=== PATIENT | female | born 1975 | race Caucasian/White ===

== ENCOUNTER → 2018-03-05 | Outpatient (CLI) | payer BC, OTHER ==
[~2018-03-05] MED LIST: AMOX-358 PO; BACL10TA; FLUC150T PO; FLUO40CA; FLUT9.9S NS; PHEN37.582; PROP1TAB77; SULF1TAB38 PO; ZOVIA
--- NOTE | 2018-03-05 17:54 | Diagnostic Imaging Report ---
INDICATION: Digital mammogram bilateral screening with 3-D tomosynthesis. This study was compared to the prior exams of 08/12/16 and 03/04/15. At this time, there are no current complaints. The current study was also evaluated with a Computer Aided Detection (CAD) system. FINDINGS: The fibroglandular tissue in both breasts is heterogeneously dense. This does limit the sensitivity of this exam. When compared to the prior study, there does not appear to have been any significant change. There is no primary or secondary sign of malignancy noted. The 3D tomographic views also fail to show any sign of malignancy. IMPRESSION: There is no evidence of malignancy. ACR BI-RADS Category 1: Negative. Result letter will be mailed to the patient. Note: At least 10% of breast cancer is not imaged by mammography. Dictated by: Dictated on workstation # [id number]
== END ==
LOC: RAD 07:24
PROVIDERS: ATTEND Obstetrics & Gynecology
DX: Z12.31 Encounter for screening mammogram for malignant neoplasm of breast (principal)
CPT/HCPCS: 77067

== ENCOUNTER → 2019-06-14 | Outpatient (CLI) | payer BC, OTHER ==
--- NOTE | 2019-06-14 18:59 | Diagnostic Imaging Report ---
INDICATION: Routine screening. COMPARISON: Comparison is made with prior mammograms of 03/05/2018 and 08/12/2016. 2-D and 3-D bilateral screening mammography was performed. The current study was also evaluated with a Computer Aided Detection (CAD) system. 3-D tomosynthesis was also performed and reviewed. FINDINGS: Both breasts are heterogeneously dense, limiting the sensitivity of mammography. There are benign calcifications bilaterally. No mass or malignant-appearing microcalcifications are seen. The axillae are unremarkable. IMPRESSION: No mammographic features suspicious for malignancy are identified. ACR BI-RADS Category 2: Benign findings. Result letter will be mailed to the patient. Note: At least 10% of breast cancer is not imaged by mammography. Dictated by: Dictated on workstation # [id number]
== END ==
LOC: RAD 09:07
PROVIDERS: ATTEND Obstetrics & Gynecology
DX: Z12.31 Encounter for screening mammogram for malignant neoplasm of breast (principal)
CPT/HCPCS: 77067

== ENCOUNTER → 2020-04-02 | Outpatient (CLI) | payer BC ==
--- NOTE | 2020-04-02 16:08 | Diagnostic Imaging Report ---
INDICATION: Tachycardia FINDINGS: The heart size and configuration are normal. No vascular congestion. No effusion or pneumothorax. No failure pattern. IMPRESSION: No acute appearing abnormality. Dictated by: Dictated on workstation # [id number]
== END ==
LOC: CARD 12:32
PROVIDERS: ATTEND Nurse Practitioner Family
DX: R00.0 Tachycardia, unspecified (principal)
CPT/HCPCS: 71047; 93005

== ENCOUNTER → 2020-06-02 | Outpatient (CLI) | payer BC | LOC: CARD 12:38 | PROVIDERS: ATTEND Internal Medicine Cardiovascular Disease | DX: R00.0 Tachycardia, unspecified (principal); E78.5 Hyperlipidemia, unspecified; E11.9 Type 2 diabetes mellitus without complications | CPT/HCPCS: 93225; 93226; 93306; 93351 ==

== ENCOUNTER → 2020-06-15 | Outpatient (CLI) | payer BC ==
--- NOTE | 2020-06-15 14:31 | Diagnostic Imaging Report ---
INDICATION: Routine screening. COMPARISON: 06/14/2019 and 03/05/2018. TECHNIQUE: 2D and 3D bilateral screening mammography was performed with CAD. FINDINGS: Both breasts are heterogeneously dense, limiting the sensitivity of mammography. There are benign calcifications in both breasts. There is a cluster in the upper aspect of the left breast near the axillary tail which appears more prominent than on prior exams. Additional views are recommended. No mass is seen. The axillae are unremarkable. IMPRESSION: Left breast calcifications in the upper outer aspect. Additional views are recommended for further evaluation. ACR BI-RADS Category 0: Incomplete. (Needs additional imaging evaluation). Result letter will be mailed to the patient. Note: At least 10% of breast cancer is not imaged by mammography. Dictated by: Dictated on workstation # [id number]
== END ==
LOC: RAD 10:48
PROVIDERS: ATTEND Obstetrics & Gynecology
DX: Z12.31 Encounter for screening mammogram for malignant neoplasm of breast (principal); R92.1 Mammographic calcification found on diagnostic imaging of breast
CPT/HCPCS: 77063; 77067

== ENCOUNTER → 2020-06-24 | Outpatient (CLI) | payer BC ==
--- NOTE | 2020-06-24 13:17 | Diagnostic Imaging Report ---
INDICATION: Left breast calcifications. Patient presents for additional views. COMPARISON: 06/15/2020. TECHNIQUE: Unilateral left 2D and 3D diagnostic mammography was performed. This included magnification CC and MLO views as well as conventional 90 degree lateral views. The current study was evaluated with a Computer Aided Detection (CAD) system. FINDINGS: The additional views show a cluster of indeterminate microcalcifications in the upper and outer aspect of the left breast at posterior depth. No associated soft tissue mass is identified. IMPRESSION: Cluster of indeterminate microcalcifications in the upper outer left breast at posterior depth, apparently new since the prior imaging. Tissue sampling is recommended. These would be amenable to a stereotactic biopsy approach. ACR BI-RADS Category 4: Suspicious abnormality. Result letter will be mailed to the patient. Note: At least 10% of breast cancer is not imaged by mammography. Dictated by: Dictated on workstation # [id number]
== END ==
LOC: RAD 08:42
PROVIDERS: ATTEND Obstetrics & Gynecology
DX: R92.0 Mammographic microcalcification found on diagnostic imaging of breast (principal)

== ENCOUNTER → 2020-07-22 | Outpatient (CLI) | payer BC ==
[~2020-07-22] VITALS: Ht 165.1 cm; Wt 81.8 kg
[~2020-07-22] MED LIST changes: +LIDOCAINE 1% INJ 20 ML 20 ML VIAL INJ ONE; +LIDOCAINE 1% INJ 20 ML 20 ML VIAL ONE
--- NOTE | 2020-07-22 14:10 | Diagnostic Imaging Report ---
INDICATION: Left breast calcifications. Patient presents for stereotactic biopsy. DETAILS OF THE PROCEDURE: The patient was brought to the stereotactic suite and placed in the chair in the sitting upright position. The left breast was positioned lateral medial. The calcifications in the upper outer aspect of the left breast at posterior depth were stereotactically targeted. The left breast was then prepped and draped in the usual sterile fashion. A small amount of 1% lidocaine was utilized for superficial and deep anesthesia. An 8 gauge stereotactic biopsy needle was advanced into the left breast from a lateral medial approach and placed with its tip per stereotactic coordinates. A total of four core biopsies was obtained utilizing the 8 gauge vacuum-assisted device. A specimen radiograph was then performed. Minimal calcification was present in the sample; therefore, four additional core samples were obtained. The additional sample demonstrates more calcifications present and the sample was labeled #7. A marker clip was then deployed. The needle was removed and hemostasis was obtained. The patient tolerated the procedure well and was sent for a post procedure mammogram in satisfactory condition. The post procedure mammogram demonstrates a marker clip in the upper outer left breast. Pathology results are currently pending. All images were viewed on a dedicated workstation. IMPRESSION: Stereotactic biopsy of calcifications in the upper outer left breast at posterior depth. Pathology results are currently pending. Dictated by: Dictated on workstation # [id number]
== END ==
LOC: RAD 10:30
PROVIDERS: ATTEND Surgery
DX: N63.21 Unspecified lump in the left breast, upper outer quadrant (principal); R92.1 Mammographic calcification found on diagnostic imaging of breast
CPT/HCPCS: 19081

== ENCOUNTER 2020-08-18 05:33 | Outpatient (RCR) | payer BC ==
[~2020-08-18] VITALS: Ht 165.1 cm; Wt 81.8 kg
[~2020-08-18 05:33] MED LIST changes: +ALPR0.5T7 PO; +ATEN100T PO; +ATOR10TA66 PO; +BUPR300T43 PO; +CALC-140 PO; +ESOM20CA PO; +ETHY1TAB3 PO; +LEVO5TAB12 PO; -LIDOCAINE 1% INJ 20 ML 20 ML VIAL INJ ONE; -LIDOCAINE 1% INJ 20 ML 20 ML VIAL ONE; +METF-865 PO; +MULT-1060 PO; +SEMA1PEN SQ; +TPR25T PO
[2020-08-20] MEDS ORDERED: IBUP-1773 PO (11:51)
== END 2020-08-18 10:27 | disposition home or self-care (01) ==
LOC: PREOP 05:33
PROVIDERS: ATTEND Surgery
DX: Z01.812 Encounter for preprocedural laboratory examination (principal); N63.20 Unspecified lump in the left breast, unspecified quadrant; Z20.828 Contact with and (suspected) exposure to other viral communicable diseases
CPT/HCPCS: 87635

== ENCOUNTER 2020-08-20 07:34 | Day surgery (SDC) | payer BC ==
[~2020-08-20] VITALS: Ht 165.1 cm; Wt 81.8 kg
[2020-08-20] VITALS (10 sets, daily range): BP systolic 101–134; BP diastolic 65–96
--- NOTE | 2020-08-20 08:08 | Progress Note-Pre Operative ---
Pre-Operative Progress Note H&P Reviewed The H&P was reviewed, patient examined and no changes noted. Date Seen by Provider: Aug 20, 2020 Time Seen by Provider: 08:08 Date H&P Reviewed: Aug 20, 2020 Time H&P Reviewed: 08:08 Pre-Operative Diagnosis: left breast calcifications HEMALATHA SORIA DO Aug 20, 2020 08:08
[2020-08-20] MEDS ORDERED: LIDOCAINE 1% INJ 20 ML 20 ML VIAL INJ ONE (08:15)
[2020-08-20] MEDS ORDERED: ceFAZolin INJECTION 1,000 MG in WATER (STERILE) FOR INJECTION 10 ML IV ONE (08:15)
[2020-08-20] MEDS: LACTATED RINGERS 1,000 ML IV PRN ×2 (08:17→11:54)
[2020-08-20] MEDS ORDERED: proPOfol 200 MG/20 ML (DIPRIVAN) VIAL IV ONE (08:42)
[2020-08-20] MEDS ORDERED: LIDOCAINE PF 2% 5 ML (XYLOCAINE) VIAL ONE (08:42)
[2020-08-20] MEDS ORDERED: fentaNYL INJECTION 100 MCG/2 ML AMP ONE (08:42)
[2020-08-20] MEDS ORDERED: MIDAZOLAM 2 MG/2 ML (VERSED) VIAL ONE (08:42)
[2020-08-20] MEDS ORDERED: ONDANSETRON 4 MG/2 ML (SDV) Z0FRAN ONE (08:42)
[2020-08-20] MEDS ORDERED: SEVOFLURANE (ULTANE) 15 ML INHAL SOLN ONE ×4 (08:50→11:25)
[2020-08-20] MEDS ORDERED: BUP/EPI 0.5% 1:200,000 (SENSORCAINE) 30 ML VIAL ONE (09:17)
[2020-08-20] MEDS ORDERED: PHENYLEPHRINE INJ 10 MG/ML (FOR DRIP KITS ONLY) ONE (10:43)
--- NOTE | 2020-08-20 11:08 | Diagnostic Imaging Report ---
INDICATION: Left breast calcifications. Patient presents for hookwire localization. Patient brought to the mammographic suite placed in chair in a sitting upright position. The left breast was positioned craniocaudal. The calcifications in the upper outer posterior left breast were stereotactically targeted. Localizing needle was then advanced and placed with its tip just beyond the calcifications in the upper outer left breast. The localizer wire was then deployed and the needle was removed. Follow-up 2-D cc and lateral medial mammography demonstrates hookwire passing adjacent to the calcifications in the upper outer left breast. A wire was affixed to the patient's skin and patient was sent preop in satisfactory condition. IMPRESSION: Hookwire localization of the calcifications in the upper outer left breast posterior depth utilizing stereotactic approach. The patient tolerated the procedure well. Dictated by: Dictated on workstation # [id number]
--- NOTE | 2020-08-20 11:40 | Progress Note-Post Operative ---
Post-Operative Progess Note Surgeon (s)/Director Of Catering Sales (s) Surgeon HEMALATHA SORIA DO Director Of Catering Sales: na Pre-Operative Diagnosis left breast calcifications Post-Operative Diagnosis same Procedure & Operative Findings Date of Procedure 08/20/20 Procedure Performed/Findings left breast excisional biopsy wire localized Anesthesia Type general Estimated Blood Loss Estimated blood loss (mL): min Specimens/Packing Specimens Removed left breast excisional biopsy HEMALATHA SORIA DO Aug 20, 2020 11:40
[2020-08-20] MEDS ORDERED: ONDANSETRON 4 MG/2 ML (SDV) Z0FRAN IVP PRN (11:45)
[2020-08-20] MEDS ORDERED: morphine INJ 10 MG/ML 1ML (SYR OR VIAL) IVP ONE (11:45)
[2020-08-20] MEDS ORDERED: morphine INJ 10 MG/ML 1ML (SYR OR VIAL) ONE (11:45)
[2020-08-20] MEDS ORDERED: IBUP-1773 PO (11:51)
--- NOTE | 2020-08-20 11:52 | Discharge Inst-Simple/Standard ---
Discharge Inst-Standard Discharge Medications New, Converted or Re-Newed RX: Transmitted to Pharmacy Patient Instructions/Follow Up Plan of Care/Instructions/FU: 2 weeks ihsan Activity as Tolerated: No Discharge Diet: Regular Diet Other Inst to Patient Follow up Appt: Make appointment for 2 week. Instructions: No lifting greater than 10 pounds. No strenuous activity. May shower in 24 hours, no tub bath or soaking. Use incentive spirometer at home as directed. No Smoking Skin/Wound Care: You have special glue over your incision that will fall off on it's own. Wear compressive (supportive) bra. Symptoms to Report: Appetite Changes, Extremity Discoloration, Numbness/Tingling, Swelling Increased, Bleeding Excessive, Eyesight Changes, Pain Increased, Urine Color Change, Constipation(Persistent), Fever over 101 degree F, Pain/Pressure in chest, Urinating Difficulty, Cough Up/Vomit Blood, Heart Beat Irreg/Pounding, P ain/Pressure in jaw, Vaginal Bleeding Increase, Cramps in feet or legs, Lightheadedness, Pain/Pressure in shoulder, Diarrhea(Persistent), Memory Changes Suddenly, Questions/Concerns, Weight gain consecutive days, Dizziness/Fainting, Nausea/Vomiting, Shortness of Breath, Weight gain over 2 pounds If questions or concerns contact your physician Or seek help at emergency department. HEMALATHA SORIA DO Aug 20, 2020 11:52
--- NOTE | 2020-08-20 12:18 | Anesthesia-General Post-Op ---
General Patient Condition Mental Status/LOC: Same as Preop Cardiovascular: Satisfactory Nausea/Vomiting: Absent Respiratory: Satisfactory Pain: Controlled Complications: Absent Post Op Complications Complications None Follow Up Care/Instructions Patient Instructions None needed. Anesthesia/Patient Condition Patient Condition Patient is doing well, no complaints, stable vital signs, no apparent adverse anesthesia problems. JIGNESH ODELL DO Aug 20, 2020 12:18
--- NOTE | 2020-08-20 15:41 | Diagnostic Imaging Report ---
INDICATION: Left breast calcifications. Patient status post excisional biopsy after a wire localization. Specimen radiograph does not demonstrate the hookwire as well as multiple calcifications within the sample. Calcifications are located within coordinates J10 and J 11. IMPRESSION: Specimen radiograph demonstrating hook wire and calcifications, as described. Dictated by: Dictated on workstation # [id number]
--- NOTE | 2020-08-21 01:45 | OPERATIVE REPORT ---
DATE OF SERVICE: 08/20/2020 PREOPERATIVE DIAGNOSIS: Left breast calcifications. POSTOPERATIVE DIAGNOSIS: Left breast calcifications. PROCEDURE: Left breast excisional biopsy, wire localized. SURGEON: Hemalatha Ramírez DO ANESTHESIA: General. ESTIMATED BLOOD LOSS: Minimal. COMPLICATIONS: None. INDICATIONS: The patient is a 45-year-old female with new calcifications of the left breast. She underwent a stereotactic biopsy, which did not obtain any calcifications. Therefore, we discussed options of rebiopsy or excisional biopsy. The patient continued monitoring. The patient wishes to proceed with excisional biopsy with wire localization. She understands risks and benefits and consent was signed on the chart. DESCRIPTION OF PROCEDURE: The patient was taken to the operating suite. She was prepped and draped in sterile fashion. Timeout was performed. Local anesthetic was infiltrated around the wire. A 15 blade scalpel was used to make an incision and cautery used to dissect down through the subcutaneous tissue making a circumferential following the wire all the way down to the distal portion of the hook wire, which was at the posterior portion of breast. Once this was excised, this was labeled one long suture lateral, short suture superior and two long sutures deep or posterior. This was sent for radiology, which confirmed removal of the wire and calcifications. The wound was then irrigated with copious amounts of irrigation. Hemostasis was achieved. Subcutaneous tissues were then reapproximated using 3-0 Vicryl. Skin was then closed using 4-0 Monocryl. The area was washed and dried. Skin Affix was placed over the incision. The patient tolerated procedure well without any complications. She was taken to recovery room in stable condition. RECOMMENDATIONS: The patient will follow up in approximately 2 weeks. Any issues before that be seen at that time. Job ID: [id number] DocumentID: [id number] Dictated Date: 08/20/2020 13:09:40 School Nurse Date: 08/20/2020 21:21:05 Dictated By: HEMALATHA RAMÍREZ DO
== END 2020-08-20 13:43 | disposition home or self-care (01) ==
LOC: RAD 07:34 → EDSTATUS 09:50 → RAD 13:43
PROVIDERS: ATTEND Surgery
DX: R92.0 Mammographic microcalcification found on diagnostic imaging of breast (principal); F41.9 Anxiety disorder, unspecified; F32.9 Major depressive disorder, single episode, unspecified; K21.9 Gastro-esophageal reflux disease without esophagitis; J45.909 Unspecified asthma, uncomplicated; E11.9 Type 2 diabetes mellitus without complications; E66.9 Obesity, unspecified; Z68.30 Body mass index [BMI] 30.0-30.9, adult; Z79.84 Long term (current) use of oral hypoglycemic drugs; Z79.899 Other long term (current) drug therapy; Z88.5 Allergy status to narcotic agent; Z91.013 Allergy to seafood; Z91.041 Radiographic dye allergy status; Z87.891 Personal history of nicotine dependence; Z80.9 Family history of malignant neoplasm, unspecified; Z82.3 Family history of stroke
CPT/HCPCS: 76098; 82962; 84703; 87081

== ENCOUNTER → 2021-12-16 | Outpatient (CLI) | payer BC ==
[~2021-12-16] MED LIST changes: +IBUP-1773 PO
--- NOTE | 2021-12-16 13:10 | Diagnostic Imaging Report ---
Digital mammogram bilateral screening This study was compared to the prior exams of 06/15/2020, 06/14/2019 and 03/05/2018. At this time, there are no current complaints. The previous diagnostic mammogram of the left breast performed on 06/24/2020 noted a cluster of indeterminate microcalcifications in the upper outer quadrant. These were subsequently biopsied using a stereotactic device and proved to be benign. The patient subsequently underwent surgical excision of the area of concern on 08/20/2020. The pathological report from the surgical excision failed to show any sign of malignancy, as well. On this exam, the calcifications in the upper-outer quadrant of the left breast seen previously are no longer evident. Surgical clips are visualized in this region however. The overall appearance of the breast has not changed significantly otherwise. The fibroglandular tissue in each breast is heterogeneously dense and this does limit the sensitivity of this exam. There is no primary or secondary sign of malignancy noted. IMPRESSION: 1. There are postsurgical changes involving the upper outer quadrant of the left breast. The previously described indeterminate microcalcifications are no longer evident. 2. There is no primary or secondary sign of malignancy noted. 3. The patient should have her annual bilateral screening mammogram on schedule in November 2022. ACR BI-RADS Category 1: Negative. Result letter will be mailed to the patient. Note: At least 10% of breast cancer is not imaged by mammography. Dictated by: Dictated on workstation # [id number]
== END ==
LOC: RAD 11:00
PROVIDERS: ATTEND Obstetrics & Gynecology
DX: Z12.31 Encounter for screening mammogram for malignant neoplasm of breast (principal); Z98.890 Other specified postprocedural states
CPT/HCPCS: 77063; 77067

== ENCOUNTER → 2023-01-04 | Outpatient (CLI) | payer BC ==
--- NOTE | 2023-01-05 10:21 | Diagnostic Imaging Report ---
2-D and 3-D bilateral screening mammography was performed with CAD. COMPARISONS: 12/16/2021, 08/20/2020, 06/15/2020 and 06/14/2019. There are no current complaints. FINDINGS: The fibroglandular tissue in both breasts is heterogeneously dense. This does limit the sensitivity of this exam. When compared to the previous study there does not appear to have been any significant change. There is no primary or secondary sign of malignancy noted. The surgical clips in the upper outer aspect of the left breast seen previously are again evident and no different. IMPRESSION: 1. There is no evidence for malignancy. ACR BI-RADS Category 1: Negative. Result letter will be mailed to the patient. Note: At least 10% of breast cancer is not imaged by mammography. Dictated by: Dictated on workstation # [id number]
== END ==
LOC: RAD 07:30
PROVIDERS: ATTEND Nurse Practitioner Family
DX: Z12.31 Encounter for screening mammogram for malignant neoplasm of breast (principal)
CPT/HCPCS: 77063; 77067

== ENCOUNTER → 2023-01-23 | Outpatient (CLI) | payer BC ==
--- NOTE | 2023-01-23 11:18 | Diagnostic Imaging Report ---
PATIENT HISTORY: WHEEZING COUGHING. TECHNIQUE: Single frontal view of the chest. COMPARISON: 04/02/2020 FINDINGS: The lung volumes are normal. No focal consolidation is seen. No large pleural effusion or pneumothorax is seen. The cardiomediastinal silhouette is normal in size and contour. No acute osseous abnormality is seen. IMPRESSION: No acute pulmonary abnormality seen. Dictated by: Dictated on workstation # [id number]
== END ==
LOC: RAD 10:31
PROVIDERS: ATTEND Nurse Practitioner Family
DX: R05.9 Cough, unspecified (principal); R06.2 Wheezing
CPT/HCPCS: 71045